=== PATIENT | male | born 1970 | race Caucasian/White ===

== ENCOUNTER 2022-06-25 09:59 | Inpatient (IN) ==
[2022-06-18 15:41] LABS: Appearance,Urine CLEAR (Clear); Bilirubin,Urine NEGATIVE (Negative); Color,Urine LT. YELLOW; Culture Indicated,Urine No; Glucose,Urine (UA) 100 mg/dL (Negative); Ketones,Urine NEGATIVE (Negative); Leukocyte Esterase,Urine NEGATIVE /uL (Negative); Nitrate,Urine NEGATIVE (Negative); PH,Urine 5.5 (5.0-9.0); Protein,Urine NEGATIVE (Negative); Specific Gravity,Urine >= 1.030 (1.000-1.035); Urine Blood NEGATIVE ery/mcL (Negative); Urobilinogen,Urine Normal
[2022-06-18 15:52] LABS: Basophils % (Auto) 0.8 % (0.0-2.0); Eosinophils # (Auto) 0.58 K/mcL (0.00-0.70); Eosinophils % (Auto) 4.8 % (0.0-7.0); Hematocrit 44.3 % (40.1-51.0); Hemoglobin 14.8 g/dL (13.7-17.5); Lymphocytes # (Auto) 1.89 K/mcL (1.50-4.80); Lymphocytes % (Auto) 15.7 % (15.5-49.0); Mean Cell Volume 86.2 fL (80.0-100.0); Mean Corpuscular HGB Conc 33.4 g/dL (31.0-36.0); Mean Platelet Volume 10.8 fL (8.8-12.5); Monocytes # (Auto) 0.87 K/mcL (0.10-0.90); Monocytes % (Auto) 7.2 % (1.0-12.0); Neutrophils % (Auto) 70.6 % (38.0-78.0); Platelet Count 300 K/mcL (140-440); RBC 5.14 M/mcL (4.63-6.08); Red Cell Distribution Width 14.2 % (11.5-14.5)
[2022-06-18 16:00] LABS: Partial Thromboplastin Time 37.1 sec (20.0-37.0); Prothrombin Time 13.1 sec (11.9-14.5)
[2022-06-18 16:03] LABS: Blood Urea Nitrogen 14 mg/dL (6-20); Calcium 9.5 mg/dL (8.6-10.4); Carbon Dioxide 27 mmol/L (22-30); Chloride 102 mmol/L (96-108); Glomerular Filtration Rate 86; Glucose 117 mg/dL (70-105)
[2022-06-18 16:17] LABS: Estimated Average Glucose(eAG) 157 mg/dL; Hemoglobin A1C 7.1 % Hgb (4.0-6.0)
--- NOTE | 2022-06-19 07:34 | EKG ---
[facility] Test Date: 2022-06-18 Pat Name: Kalen Muñoz Department: MEDR Room: Gender: Male Sandwich Hand: : 1970 Requested By: Deonte Cervantes Order Number: [id number] Reading MD: David Newton Measurements Intervals [place] Rate: 63 P: 28 [place]: 167 QRS: 36 QRSD: 85 T: 18 QT: 380 QTc: 390 Interpretive Statements Sinus rhythm Electronically Signed On 06-19-2022 7:33:40 PST by David Newton /[email or web address]/[id number]/[id number]
[~2022-06-25 09:59] MED LIST: 0.9 % SODIUM CHLORIDE 9 ML, KETOROLAC 30 MG, ROPIVACAINE HCL/PF 49.5 ML, EPINEPHrine 0.... IJ SCH; ACETAMINOPHEN 500 MG TABLET PO SCH; CELECOXIB 200 MG CAPSULE PO SCH; PREGABALIN 150 MG CAPSULE PO SCH; ceFAZolin 2 GM in DEXTROSE 5% IN WATER 50 ML IV SCH; oxyCODONE 10 MG TAB.ER.12H PO SCH
[2022-06-25] MEDS ORDERED: IPRATROPIUM/ALBUTEROL 3 ML AMPUL.NEB NEB PRN ×2 (10:00→14:36)
[2022-06-25] MEDS ORDERED: SCOPOLAMINE 1 PATCH PATCH TOPICAL PRN (10:00)
[2022-06-25] MEDS ORDERED: KETAMINE 50 MG/ML Syringe (ANEST) IV ONE (12:58)
[2022-06-25] MEDS ORDERED: DEXAMETHASONE 10 MG/ML VIAL ONE (12:58)
[2022-06-25] MEDS ORDERED: MAGNESIUM SULFATE 2 GM/50 ML BAG IV ONE (12:58)
[2022-06-25] MEDS ORDERED: TRANEXAMIC ACID 1,000 MG/10 ML VIAL ONE (12:58)
[2022-06-25] MEDS ORDERED: ROPIVACAINE HCL/PF 20 ML VIAL IJ ONE (12:58)
[2022-06-25] MEDS ORDERED: PROPOFOL 200 MG/20 ML VIAL IV ONE (12:58)
[2022-06-25] MEDS ORDERED: ePHEDrine 50 MG/5 ML SYRINGE (ANEST) IV ONE (12:58)
[2022-06-25] MEDS ORDERED: ONDANSETRON 4 MG/2 ML VIAL ONE (12:58)
[2022-06-25] MEDS ORDERED: LIDOCAINE HCL/PF 100 MG/5 ML SYRINGE IV ONE (12:58)
[2022-06-25] MEDS ORDERED: PROMETHAZINE 25 MG/ML VIAL IV PRN (14:36)
[2022-06-25] MEDS ORDERED: diphenhydrAMINE 50 MG/ML VIAL IV PRN (14:36)
[2022-06-25] MEDS ORDERED: fentaNYL 100 MCG/2 ML VIAL IV PRN (14:36)
[2022-06-25] MEDS ORDERED: ONDANSETRON 4 MG/2 ML VIAL IV PRN ×2 (14:36→14:45)
[2022-06-25] MEDS ORDERED: LACTATED RINGERS 250 ML IV PRN (14:36)
[2022-06-25] MEDS ORDERED: NALOXONE HCL 0.4 MG/ML VIAL IV PRN (14:36)
[2022-06-25] MEDS ORDERED: MEPERIDINE 25 MG/ML VIAL IV PRN (14:36)
[2022-06-25] MEDS ORDERED: HYDROmorphone 0.5 MG/0.5 ML SYRINGE IV PRN (14:36)
[2022-06-25] MEDS ORDERED: BISACODYL 10 MG SUPP.RECT PR PRN (14:45)
[2022-06-25] MEDS ORDERED: LACTATED RINGERS 1,000 ML IV SCH (14:45)
[2022-06-25] MEDS ORDERED: TRANEXAMIC ACID 1,000 MG/10 ML VIAL IV ONE (14:45)
[2022-06-25] MEDS ORDERED: HYDROmorphone 1 MG/ML SYRINGE IV PRN (14:45)
[2022-06-25] MEDS ORDERED: TEMAZEPAM 15 MG CAPSULE PO PRN (14:45)
[2022-06-25] MEDS ORDERED: ACETAMINOPHEN 325 MG TABLET PO PRN ×2 (14:45→17:00)
[2022-06-25] MEDS ORDERED: FLEETS ADULT ENEMA PR PRN (14:45)
[2022-06-25] MEDS ORDERED: POLYETHYLENE GLYCOL 3350 17 GM PACKET PO PRN (14:45)
[2022-06-25] MEDS ORDERED: DEXTROSE 31 GM ORAL.SUSP PO PRN (14:45)
[2022-06-25] MEDS ORDERED: DEXTROSE 50% 50 ML VIAL IV PRN (14:45)
[2022-06-25] MEDS ORDERED: MAGNESIUM HYDROXIDE 30 ML ORAL.SUSP PO PRN (14:45)
--- NOTE | 2022-06-25 14:45 | Brief Operative Note ---
Brief Operative Note Date of procedure: 06/25/22 Pre-op diagnosis: left knee pain and djd Post-op diagnosis: same Procedure: Left tka revision all comp Grafts/Implants: Yes Anesthesia: GETA Findings: medial partial tka Complications: none Surgeon: Cuong Spicer Dosier Operator: Fransisco Hsu Estimated blood loss (cc): 42 Tourniquet Time (Minutes): 49 Specimens Removed/Pathology: none sent Condition: stable Disposition: PACU
--- NOTE | 2022-06-25 15:03 | Discharge Plan ---
Discharge Instructions - TKA Patient Instructions Total Knee Protocol: For Total Knee: Start ROM KORINA with stationary bike or rocking chair. Work on gaining full extension of knee. Posterior dislocation precautions provided. Hip abductor strengthening and gait training instructions provided. Apply Cryocuff as instructed. Additional Dressing Instructions: Leave Zip line closure patch intact until followup --May shower at anytime. Discharge Plan Patient/Caregiver Discharge Instructions Activity: ambulate only with your walker and as per physical therapy Diet: Regular Diet Prescriptions: New aspirin [Ecotrin Low Strength] 81 mg tablet,delayed release (DR/EC) 81 mg PO BID Qty: 60 0RF docusate sodium 100 mg capsule 100 mg PO BID Qty: 60 0RF oxycodone-acetaminophen 5-325 mg tablet 1 - 2 tab PO Q4H MDD 8 PRN (Reason: pain) Qty: 75 0RF No Action Myrbetriq 50 mg tablet extended release 24 hr 50 mg PO Q24H Qty: 30 6RF sitagliptin phosphate 100 mg tablet 100 mg PO QDAY Qty: 30 11RF metformin 750 mg tablet extended release 24 hr 750 mg PO BID Qty: 60 11RF tadalafil 5 mg tablet 5 mg PO QDAY Qty: 30 6RF levothyroxine 88 mcg tablet 88 mcg PO QAM Qty: 90 3RF oxycodone-acetaminophen 5-325 mg tablet 1 tab PO TID PRN (Reason: pain) Qty: 42 0RF Rx Instructions: Try 1/2 tab first. Risk for addiction. Must last at least 14 days. insulin degludec [Tresiba FlexTouch U-100] 100 unit/mL (3 mL) insulin pen 10 unit subcut QDAY 0RF glipizide 5 mg tablet 5 mg PO BID Qty: 180 0RF glipizide 10 mg tablet extended release 24hr 10 mg PO BID Qty: 180 1RF (DME) True Metrix Glucose Test Strip strip See Rx Instructions .ROUTE .MEDSUPPLY Qty: 10 Rx Instructions: As directed pregabalin 150 mg capsule 150 mg PO TID triamcinolone acetonide 0.1 % cream 1 applic topical BID Qty: 80 1RF Rx Instructions: 2wk on and 2wk off. Call office in 2weeks. magnesium sulfate 100 mg capsule 400 mg PO WEEKLY albuterol sulfate [Ventolin HFA] 90 mcg/actuation HFA aerosol inhaler 2 puff inhalation .Q4-6H PRN (Reason: bronchospasm) Qty: 18 0RF B Complex w-Vit C 06-98-73-5-250 mg Tablet 1 tab PO QDAY ferrous sulfate 325 mg (65 mg iron) Tablet 325 mg PO BID Other Ambulatory Orders: CPM Discharge Order (ONCE) Location: None Selected Ordered By: Fransisco Hsu Physical Therapy DC - TKA (Routine) Location: None Selected Ordered By: Fransisco Hsu Toilet Riser Discharge Order (ONCE) Location: None Selected Ordered By: Fransisco Hsu Walker (ONCE) Location: None Selected Ordered By: Fransisco Hsu Follow Up Plan Follow up with: Fransisco Hsu PA-C [Physician Scrum Coach] - Patient Disposition: Home, Self-Care Prognosis: Good Rehab Potential: Good I certify that the patient requires SNF services: No Overall status at discharge: patient is progressing back to baseline Discharge Orders: Discharge Order (Routine); Ordered 06/26/22 Ordered By: Fransisco Hsu
--- NOTE | 2022-06-25 15:06 | Operative Note ---
DATE OF OPERATION: 06/25/2022 DATE OF PROCEDURE: 06/25/2022 PREOPERATIVE DIAGNOSIS: Left knee pain with a prior ACL reconstruction and failure to maintain pain control with a partial knee with degenerative arthritis. POSTOPERATIVE DIAGNOSIS: Left knee pain with a prior ACL reconstruction and failure to maintain pain control with a partial knee with degenerative arthritis. PROCEDURE: Left knee revision from a partial knee with removal of all components to a total knee arthroplasty, cemented components, except for the patella. SURGEON: Cuong Spicer M.D. ENGINE ASSEMBLY SUPERVISOR: Fransisco Hsu PA-C. The PA's assistance was required for the safe and efficient completion of the entire case. This provider's expertise and technical skill were required throughout the case. The PA assisted with preoperative coordination, intraoperative retraction, wound closure, dressing and splint application, as well as postoperative documentation and care coordination. ANESTHESIA: General LMA anesthesia. COMPLICATIONS: None. SPECIMENS: None. DISPOSITION: PACU. IMPLANTS: Size 3 femur, size 3 tibial baseplate with a 14 mm deep dish poly, cruciate retained design, 35 mm oval cementless patella. DESCRIPTION OF PROCEDURE: The patient was brought to the operating room, put to sleep with general LMA anesthesia. A timeout was performed, confirming the operative site by initials, consent form, and x-ray. Preoperative antibiotic and tranexamic acid were given. A midline incision through his prior scar and midvastus approach was performed. This showed a well-positioned partial knee with well-fixed femoral component and tibial component without significant wear of the poly liner. There was an ACL and PCL. The ACL was probably attenuated or thin, slightly, which might be part of his problem. There was some arthritis that had begun in the trochlear groove and the lateral compartment. At this point, we proceeded with the total knee revision. The medial femoral component was removed using flexible osteotomes, the tibial component was removed with flexible osteotomes without significant bone loss. We then registered the bone around the implants and brought in the robot. We made the bony cuts after we had aligned the knee on the computer and showed the robot its ligamentous laxity at 15 and 90 degrees. The bony cuts were made. We then tapped into place the tibial baseplate and the femoral component. We trialed a size 11; using the Verasense liner we were able to tell the pressures throughout. The knee hyperextended and almost to neutral at 13 but the pressures were fairly low at 12 to 14. At this point, because of 1 degree of hyperextension we decided to go to the one size higher, which was 14 mm. This reestablished mechanical alignment and stability throughout the arc of motion. We then cemented into place a size 3 tibial baseplate, size 3 femur, a 14 deep dish poly. The patella was prepared. It measured 22 mm at its thickest point. This was cut to 13 mm and we placed a 35 mm oval patella, which fit very nicely and tracked well. We irrigated thoroughly and then repaired the midvastus approach after thorough irrigation to remove any debris. Once done, we were able to close the midvastus approach with #1 Stratafix x2, closed the skin with 2-0 Vicryl and Stratafix with adhesive closure. We took the knee through range of motion to confirm its stability and everything tracked well, equally balanced throughout this arc of motion. The patient tolerated this well. Sterile bandage was applied. Tourniquet was deflated at approximately 48 minutes. RBH:charlene Job ID: [id number] Doc ID: [id number] Cuong Spicer MD
--- NOTE | 2022-06-25 16:01 | XRay Report ---
INDICATION: Post-Op Total Knee TECHNIQUE: AP and lateral COMPARISON: Previous plain film examination dated 04/12/2022 FINDINGS:History of left anterior cruciate ligament repair. Previous examination demonstrated medial hemiknee left knee arthroplasty. There has been interval revision. Femoral and tibial prostheses were placed consistent with left total knee arthroplasty. There is a patellar prosthesis. Alignment is anatomic. There is postsurgical intra-articular and soft tissue gas. IMPRESSION: Left total knee arthroplasty Interpreted and Authenticated by: Jimmy Arriola 06/25/22
[2022-06-25] MEDS: 0.45 % SODIUM CHLORIDE 1,000 ML IV SCH (17:10)
[2022-06-25] MEDS: INSULIN LISPRO 1 UNIT/0.01 ML UNIT SQ SCH ×2 (17:11→22:11)
[2022-06-25] MEDS ORDERED: SENNOSIDES 1 TABLET PO SCH (21:00)
[2022-06-25] MEDS: DOCUSATE SODIUM 100 MG CAPSULE PO SCH (21:58)
[2022-06-25] MEDS: ASPIRIN 81 MG TAB.CHEW PO SCH (21:58)
[2022-06-25] MEDS ORDERED: ceFAZolin 1 GM VIAL ONE (22:09)
[2022-06-25] MEDS: ceFAZolin 1 GM VIAL IV SCH (22:12)
[2022-06-25] MEDS: 0.9 % SODIUM CHLORIDE 10 ML SYRINGE IV SCH (22:12)
[2022-06-26] MEDS: INSULIN LISPRO 1 UNIT/0.01 ML UNIT SQ SCH ×2 (00:09→08:04)
[2022-06-26] MEDS: oxyCODONE/APAP 5/325MG TABLET PO PRN ×3 (00:37→09:08)
[2022-06-26] MEDS: 0.45 % SODIUM CHLORIDE 1,000 ML IV SCH ×2 (05:33→11:01)
[2022-06-26] MEDS: 0.9 % SODIUM CHLORIDE 10 ML SYRINGE IV SCH (05:49)
[2022-06-26] MEDS: ceFAZolin 1 GM VIAL IV SCH (05:49)
--- NOTE | 2022-06-26 07:50 | Orthopedic Progress Note ---
SUBJECTIVE Subjective Patient information: Note initiated : 06/26/22 at 7:49 am Service Date, if different from initiated Date: [] Patient: Kalen Muñoz 51 y/o M admitted on 06/25/22 for Left Total Knee Arthroplasty Revision . Chief Complaint: [Pt is stable this morning on post operative day without any significant concerns or complaints. Patients vital signs have remained stable. Patients dressing is dry and is grossly intact from a neurovascular and motor standpoint. Patients 10 point ROS is otherwise negative. ] Constitutional Vitals: Vital Signs Temp Pulse Resp BP Pulse Ox O2 Del Method O2 Flow Rate 98.4 F 59 L 20 123/59 98 Room Air 6 06/26/22 07:25 06/26/22 07:25 06/26/22 07:25 06/26/22 07:25 06/26/22 07:25 06/26/22 07:25 06/25/22 15:31 Period Temp Pulse Resp BP Sys/Verde Pulse Ox O2 Del Method O2 Flow Rate Last 24 Hr 97.2 F-98.8 F 59-86 10-20 111-157/54-83 92-99 CPAP-Simple Mask 6-6 Intake and Output 06/25/22 06/26/22 06/26/22 19:59 03:59 11:59 Intake Total 2060 400 Output Total 750 1350 Balance 1310 -950 Weight 260 lb 3.2 oz Intake & Output: Intake & Output 06/25/22 06/26/22 06/26/22 19:59 03:59 11:59 Intake Total 2060 400 Output Total 750 1350 Balance 1310 -950 Weight 260 lb 3.2 oz Intake: IV 50 Ancef 2 gm In Dextrose 5% in 50 Water 50 ml @ 100 mls/hr IV PREOP [facility] Rx#:[id number] Oral 360 400 IV - Manual Only 1650 Output: Urine Catheter Amount 700 Void Amount 1350 Estimated Blood Loss 50 Other: Urine Appearance Clear Clear Urine Color Yellow Yellow Urine Odor Normal Extremities Exam Extremities exam: Present normal capillary refill, normal inspection, Foot pink and warm and neurovascular intact OBJ DATA Labs 06/26/22 05:12 06/18/22 12:54 Labs: Abnormal Lab Results 06/26/22 05:12 Hct 38.4 L Meds: Medications Acetaminophen (Acetaminophen 325 Mg Tablet) 650 mg PO Q6HP PRN; Protocol PRN Reason: Per Pain Protocol/Fever > 101 Aspirin (Aspirin 81 Mg Tab.Chew) 81 mg PO BID [facility] Last Admin: 06/25/22 21:58 Dose: 81 mg Bisacodyl (Bisacodyl 10 Mg Supp.Rect) 10 mg NE Q2-3DAYS PRN PRN Reason: Constipation Dextrose (Dextrose 50% 50 Ml Vial) 0 ml IV UD PRN PRN Reason: Per Sliding Scale Diagnostic Test (Pha) (Accu-Chek 1 Each Strip) 1 each FS [facility] Last Admin: 06/25/22 23:59 Dose: 1 each Docusate Sodium (Docusate Sodium 100 Mg Capsule) 100 mg PO BID [facility] Last Admin: 06/25/22 21:58 Dose: 100 mg Glucose (Dextrose 31 Gm Oral.Susp) 15 gm PO PRN PRN PRN Reason: Hypoglycemia Hydromorphone HCl (Hydromorphone 1 Mg/Ml Syringe) 0.5 - 2 mg IV Q2HP PRN; Protocol PRN Reason: Per Pain Protocol Last Admin: 06/25/22 23:08 Dose: 0.5 mg Sodium Chloride (Sodium Chloride 0.45%) 1,000 mls @ 100 mls/hr IV .Q10H [facility] Last Admin: 06/26/22 05:33 Dose: Not Given Insulin Human Lispro (Insulin Lispro 1 Unit/0.01 Ml Unit) 0 unit SQ [facility]; Protocol Last Admin: 06/26/22 00:09 Dose: 12 units Magnesium Hydroxide (Magnesium Hydroxide 30 Ml Oral.Susp) 30 ml PO BIDP PRN PRN Reason: Constipation Ondansetron HCl (Ondansetron 4 Mg/2 Ml Vial) 4 mg IV Q4HP PRN PRN Reason: Nausea And Vomiting Oxycodone/Acetaminophen (Oxycodone/Apap 5/325mg Tablet) 1 - 2 tab PO Q4HP PRN; Protocol PRN Reason: Per Pain Protocol Last Admin: 06/26/22 03:41 Dose: 1 tab Polyethylene Glycol (Polyethylene Glycol 3350 17 Gm Packet) 17 gm PO DAILYP PRN PRN Reason: Constipation Senna (Sennosides 1 Tablet) 2 tab PO HS [facility] Last Admin: 06/25/22 21:58 Dose: 2 tab Sodium Biphosphate/Sodium Phosphate (Fleets Adult Enema) 1 dose NE Q3-4DAYS PRN PRN Reason: Constipation Sodium Chloride (0.9 % Sodium Chloride 10 Ml Syringe) 10 ml IV Q8 [facility] Last Admin: 06/26/22 05:49 Dose: 10 ml Temazepam (Temazepam 15 Mg Capsule) 15 mg PO HSP PRN PRN Reason: Insomnia A/P Narrative A/P Narrative: The patient has been educated regarding dressing care, , restrictions, and follow up appointments. The patient has had all necessary DME prescribed. The patient has remained relatively stable during their hospital course. Time Spent With Patient Time: Total time spent is greater than 50% in coordination of care (as documented) at patient's floor/unit and/or counseling patient: Initial: Total time with patient: Less than 40 minutes Subsequent: Total time with patient: Less than 25 minutes Critical Care Time: No
[2022-06-26] MEDS: ASPIRIN 81 MG TAB.CHEW PO SCH (08:40)
[2022-06-26] MEDS: DOCUSATE SODIUM 100 MG CAPSULE PO SCH (08:40)
== END 2022-06-26 12:05 | disposition home or self-care (01) | DRG 468 ==
LOC: MEDSUR 09:59
PROVIDERS: ADMIT Orthopaedic Surgery; ATTEND Orthopaedic Surgery